=== PATIENT | female | born 1950 | race African-American/Black ===

== ENCOUNTER 2019-08-26 13:13 | Emergency (ER) | payer OTHER ==
[~2019-08-26] VITALS: Ht 167.6 cm; Wt 59.9 kg
[~2019-08-26 13:13] MED LIST: BENADRYL ALLERG25 MG; FLAGYL 250 MG250 MG PO; LISINOPRIL-HCT1 EAC2 PO; NAPROSYN500 MG PO; NOHOMEMEDICATIONS; NORCO 5-325 TA1 EACH PO; PRILOSEC 20 MG20 MG PO; SUMYCIN 250250 MG PO; TRAMADOL 50 MG50 MG PO; ZANTAC 150MG T150 M1 PO; ZOFRAN ODT4 MG PO
[2019-08-26 14:12] LABS: ABSOLUTE NEUTROPHILS 7.4 thou/uL (1.4-8.2); EOSINOPHILS 1.2 % (0.0-3.0); HEMATOCRIT 46.1 % (37.0-47.0); HEMOGLOBIN 15.8 gm/dL (12.0-15.0); LYMPHOCYTES 15.9 % (24.0-44.0); MCH 32.6 pg (26.0-34.0); MCHC 34.3 g/dL (28.0-37.0); MONOCYTES 8.2 % (1.0-8.0); PLATELET COUNT 227 thou/uL (150-400); POLYS 73.7 % (36.0-66.0); RBC 4.85 mil/uL (4.20-5.00); RDW 12.8 % (10.5-14.5); WBC 10.1 thou/uL (4.0-11.0)
[2019-08-26 14:19] LABS: ANION GAP 12 mmol/L (7-16); BUN 15 mg/dL (7-18); CALCIUM 9.6 mg/dL (8.5-10.1); CHLORIDE 100 mmol/L (98-107); CO2 26 mmol/L (21-32); CREATININE 0.8 mg/dL (0.6-1.0); GLUCOSE 105 mg/dL (74-106); SODIUM 138 mmol/L (136-145)
[2019-08-26 14:29] LABS: ALBUMIN 3.9 g/dL (3.4-5.0); SGOT 27 U/L (15-37); SGPT 15 U/L (30-65); TOTAL BILIRUBIN 0.5 mg/dL (<0.1-1.0); TOTAL PROTEIN 8.2 g/dL (6.4-8.2); TROPONIN-I <0.06 ng/mL (<0.06)
[2019-08-26 14:34] LABS: URINE BILIRUBIN NEGATIVE (Negative); URINE BLOOD 1+ (Negative); URINE CLARITY CLEAR; URINE COLOR YELLOW; URINE GLUCOSE-RANDOM* NEGATIVE (Negative); URINE KETONES NEGATIVE (Negative); URINE LEUKOCYTES NEGATIVE (Negative); URINE NITRITE NEGATIVE (Negative); URINE PROTEIN (DIPSTICK) NEGATIVE (Negative); URINE UROBILINOGEN 0.2 E.U./dl (0.2-1.0)
[2019-08-26 14:41] LABS: BACTERIA 1-9 Few /HPF (None Seen); CASTS None Seen /LPF (None Seen); CRYSTALS None Seen /LPF (None Seen); SQUAMOUS 0-3 Few /LPF (0-3); URINE RBC 3-10 Few /HPF (0-2); URINE WBC None Seen /HPF (0-5)
[2019-08-26] MEDS ORDERED: CETIRIZINE HCL5 MG PO (15:04)
[2019-08-26] MEDS ORDERED: HYDROCHLOROTH12.5 M1 PO (15:05)
[2019-08-26] MEDS ORDERED: LIPITOR 20 MG T20 M1 PO (15:06)
[2019-08-26] MEDS ORDERED: PROTONIX 20 MG20 M1 PO (15:06)
[2019-08-26] MEDS ORDERED: NORVASC5 MG PO (15:06)
[2019-08-26] MEDS ORDERED: ASPIR 8181 MG PO (15:06)
[2019-08-26] MEDS ORDERED: WAL-ZYR10 M1 PO (15:07)
[2019-08-26 15:27] VITALS: BP 153/96
[2019-08-26] MEDS ORDERED: PROTONIX40 MG PO (15:27)
[2019-08-26] MEDS ORDERED: ACETAMINOPHEN-1 EAC1 PO (15:27)
[2019-08-26] MEDS ORDERED: KLOR-CON 1010 MEQ PO (15:27)
== END 2019-08-26 15:35 | disposition home or self-care (01) ==
LOC: ER 13:13
PROVIDERS: Emergency Medicine
DX: K21.9 Gastro-esophageal reflux disease without esophagitis (principal); E87.6 Hypokalemia; J06.9 Acute upper respiratory infection, unspecified; I10 Essential (primary) hypertension